=== PATIENT | male | born 1955 | race Caucasian/White ===

== ENCOUNTER 2020-06-21 22:36 | Emergency (ER) | payer OTHER ==
[2020-06-21] MEDS ORDERED: ALTACE1.25 MG PO (22:49)
[2020-06-21] MEDS ORDERED: CLOPIDOGREL PO (22:49)
[2020-06-21] MEDS ORDERED: SIMVASTATIN5 M1 PO (22:49)
[2020-06-22 00:35] VITALS: BP 161/99
== END 2020-06-22 00:35 | disposition home or self-care (01) ==
LOC: ED 22:36
DX: R04.0 Epistaxis (principal); F17.200 Nicotine dependence, unspecified, uncomplicated; I25.10 Atherosclerotic heart disease of native coronary artery without angina pectoris; Z79.82 Long term (current) use of aspirin; Z79.02 Long term (current) use of antithrombotics/antiplatelets